=== PATIENT | female | born 1985 | race Caucasian/White ===

== ENCOUNTER 2016-08-12 10:37 | Inpatient (IN) | payer MEDICAID ==
[2016-08-12] MEDS: LR 1,000 ML IV SCH ×3 (11:15→15:25)
[2016-08-12] MEDS ORDERED: ceFAZolin 2 GM/DEXTROSE 100 ML IV ONE (11:28)
[2016-08-12] MEDS ORDERED: CITRIC ACID/SODIUM CITRATE 30 ML UDCUP PO ONE (11:28)
[2016-08-12] MEDS ORDERED: LR 500 ML IV ONE (11:28)
[2016-08-12 12:00] LABS: % IMMATURE GRANULYOCYTES 0.7 % (0.0-1.1); ABSOLUTE IMMATURE GRANULOCYTES 0.04 10^3/uL (0.00-0.10); ADD DIFF? NO; ADD MORPH? NO; ADD SCAN? NO; ATYPICAL LYMPHOCYTE FLAG 20 (0-99); FRAGMENT RBC FLAG 0 (0-99); HEMATOCRIT 39.1 % (38.0-47.0); HEMOGLOBIN 13.2 g/dL (12.6-16.3); LEFT SHIFT FLG 0 (0-99); LIPEMIA HEMOLYSIS FLAG 90 (0-99); MEAN CELL HEMOGLOBIN 31.5 pg (27.9-34.1); MEAN CELL HEMOGLOBIN CONCENTR. 33.8 g/dL (32.4-36.7); MEAN CELL VOLUME 93.3 fL (81.5-99.8); MEAN PLATELET VOLUME 11.2 fL (8.7-11.7); PLATELET CLUMPS FLAG 0 (0-99); PLATELET COUNT 143 10^3/uL (150-400); RED BLOOD CELL COUNT 4.19 10^6/uL (4.18-5.33); RED CELL DISTRIBUTION WIDTH 14.4 % (11.5-15.2)
[2016-08-12] MEDS ORDERED: fentaNYL 100 MCG/2 ML INJ ONE (13:01)
[2016-08-12] MEDS ORDERED: morphINE PF 5 MG/10 ML INJ ONE (13:01)
[2016-08-12] MEDS ORDERED: PHENYLEPHRINE 10 MG/ML SDV ONE (13:01)
[2016-08-12] MEDS ORDERED: ONDANSETRON 4 MG/2 ML VIAL ONE (13:02)
[2016-08-12] MEDS ORDERED: OXYTOCIN 100 UNITS/10 ML VIAL ONE (13:02)
[2016-08-12] MEDS ORDERED: MISOPROSTOL 200 MCG TAB ONE (13:04)
[2016-08-12] MEDS ORDERED: LACTULOSE 20 GM/30 ML UDCUP PO PRN (14:27)
[2016-08-12] MEDS ORDERED: ACETAMINOPHEN 325 MG TAB PO PRN (14:27)
[2016-08-12] MEDS ORDERED: SIMETHICONE 80 MG TAB CHEW PO PRN (14:27)
[2016-08-12] MEDS ORDERED: MAGNESIUM HYDROXIDE 30 ML UDCUP PO PRN (14:27)
[2016-08-12] MEDS ORDERED: POLYETHYLENE GLYCOL 3350 17 GM PKT PO PRN (14:27)
[2016-08-12] MEDS ORDERED: DOCUSATE SODIUM 100 MG CAP PO PRN (14:27)
[2016-08-12] MEDS ORDERED: BISACODYL 10 MG SUPP PR PRN (14:27)
--- NOTE | 2016-08-12 14:27 | OBPROC ---
- Delivery Pre-op Diagnoses: IUP 39 weeks, prior c section x 2, family status complete Post-op Diagnoses: same plus very thin lower uterine segment Procedure: Repeat, Low Transverse, Tubal Ligation Surgeon: Lorena Lopes Washroom Attendant: Adrienne Franklin Anesthesiologist: Sha Obrien Anesthesia: Spinal Specimen(s)/Path: Fallopian Tube(s) EBL: 800 - Info Infant A Delivery Date: 08/12/16 Delivery Time: 13:38 Sex of Infant: Male Score (1 Min): 8 Score (5 Min): 8
[2016-08-12] MEDS ORDERED: NALOXONE HCL 0.4 MG/ML INJ IVP PRN ×2 (14:30)
[2016-08-12] MEDS ORDERED: OXYCODONE/APAP 5/325 TAB PO PRN (14:30)
[2016-08-12] MEDS ORDERED: ONDANSETRON 4 MG/2 ML VIAL IVP PRN ×2 (14:30)
[2016-08-12] MEDS ORDERED: fentaNYL 100 MCG/2 ML INJ IVP PRN (14:30)
[2016-08-12] MEDS ORDERED: HYDROmorphONE/DILAUDID 1 MG/ML SYR IVP PRN (14:30)
[2016-08-12] MEDS ORDERED: PHENYLEPHRINE HCL 100 MCG/ML SYR IVP PRN (14:30)
[2016-08-12] MEDS ORDERED: MEPERIDINE 25 MG/ML SYR IVP PRN (14:30)
[2016-08-12] MEDS ORDERED: HYDROCODONE/APAP 5/325 TAB PO PRN (14:30)
[2016-08-12] MEDS ORDERED: MEASLES,MUMPS&RUBELLA VACC/PF 0.5 ML VIAL SC ONE (14:49)
--- NOTE | 2016-08-12 15:17 | GHP ---
[f rep st] PREOP HISTORY AND PHYSICAL DATE OF ADMISSION: 08/12/2016 PREOPERATIVE DIAGNOSES: 1. Intrauterine at 39 weeks. 2. History of previous section x2. Family status complete. The patient is a 30-year-old 3, para 2-0-0-2, at 39 weeks gestation. She has a history of a previous low transverse section x2 and is not a candidate for attempting a vaginal a fter section. Her family status is complete and desires to have a bilateral salpingectomy. Risks and benefits of the procedure have been extensively reviewed with the patient, and patient h as been properly consented. PAST MEDICAL HISTORY: Negative. MEDICATIONS: vitamins and iron. PAST SURGICAL HISTORY: section x2, wisdom tooth extraction and tooth implants. ALLERGIES: No known drug allergies. SOCIAL HISTORY: The patient is . She works as a ochoa. She denies tobacco, alcohol, or dr ug use. FAMILY HISTORY: Noncontributory. PRINTING PRESS MACHINIST HISTORY: Menarche at age 18. Period is every 28 days, lasting 1-3 days. She is a 3 , para 2-0-0-2. In 03/2011, she had a primary low transverse section at 39 weeks for a rosalind ech presentation. That delivery was complicated by a failed epidural, and she had to have general a nesthesia [facility] through the . In 11/2014, she had a repeat low transverse secti on after arrest of dilation and attempted . That was done with a spinal. Current has been uncomplicated. The patient does have a history of an abnormal Pap smear, ASCUS with HPV in 20 15. Colposcopy was negative. Re-paps have been negative. She denies any history of any other sexu ally transmitted diseases. PHYSICAL EXAM: VITAL SIGNS: Stable. GENERAL APPEARANCE: Alert and oriented x3. HEART: Her hear t rate is regular, regular. LUNGS: Clear to auscultation bilaterally. ABDOMEN: Gravid, nondisten ded, nontender. EXTREMITIES: No calf tenderness or edema. PELVIC: Exam was deferred. LABORATORY DATA: labs: Blood type A positive. Antibody screen negative. Rubella nonimmu ne. GBS negative. HBsAg negative. HIV negative. She declined a 50 g glucose and she declined gen etic testing. ASSESSMENT AND PLAN: A 30-year-old 3, para 2-0-0-2, who plans to have a repeat low transver se section with tubal ligation. Risks and benefits have been reviewed with the patient, an d patient has been properly consented. /[id number]/MODL
[2016-08-12] MEDS ORDERED: KETOROLAC 30 MG/1 ML SDV ONE (17:01)
[2016-08-12] MEDS: KETOROLAC 30 MG/1 ML SDV IVP SCH ×2 (17:04→23:09)
[2016-08-12] MEDS ORDERED: SCOPOLAMINE HYDROBROMIDE 1.5 MG PATCH TD ONE (17:47)
--- NOTE | 2016-08-12 20:24 | GOP ---
[f rep st] OPERATIVE REPORT DATE OF OPERATION: 08/12/2016 SURGEON: Lorena Lopes DO FURNITURE ASSEMBLY SUPERVISOR: Adrienne Franklin MD. ANESTHESIA: Spinal with Duramorph. ANESTHESIOLOGIST: Sha Obrien MD. PREOPERATIVE DIAGNOSIS: 1. Intrauterine at 39 weeks gestation. 2. History of previous section x2. 3. Family status complete. 4. Short interval. POSTOPERATIVE DIAGNOSIS: 1. Intrauterine at 39 weeks gestation. 2. History of previous section x2. 3. Family status complete. 4. Short interval. 5. Very thin lower uterine segment. PROCEDURE PERFORMED: Repeat low transverse section with bilateral salpingectomy. FINDINGS: 1. Viable male in the occiput posterior presentation delivered at 1338 hours. 's were 8 and 8. 2. Intact placenta with 3-vessel cord. 3. Normal uterus and tubes. 1. Very thin lower uterine segment and bladder up against lower uterine segment at time of hysterot francisco repair. 4. SPECIMENS: Bilateral fallopian tubes. ESTIMATED BLOOD LOSS: 800 cc. INDICATIONS: The patient is a 30-year-old, 3, para 2-0-0-2, who has a history of 2 previous low transverse sections and a short interval between last and this one. S he is not a candidate for attempting a vaginal after section. The patient's family s tatus is complete and would like to have a bilateral salpingectomy. The patient has been properly c onsented. DESCRIPTION OF PROCEDURE: The patient was taken to the operating room with intravenous fluids in pl sara. She was seated on the operating room table where spinal anesthesia was obtained. She was then repositioned into the dorsal supine position with a leftward tilt. A Perez catheter was then place d. Venodyne's were placed on her lower extremities and she was then prepped and draped in the abbey l sterile fashion. Anesthesia was assessed and found to be adequate. A Pfannenstiel skin incision was then made 2 fingerbreadths above the pubic symphysis. The incision was then carried through to the underlying layer of fascia with the Bovie. The fascia was then nicked in the midline and the fa scial incision was extended laterally. The superior aspect of the fascial incision was then grasped with a Belle, tented up, and the underlying rectus muscle dissected off bluntly with the Bovie. A ttention was then turned to the inferior aspect of fascial incision, which, in a similar fashion, wa s grasped with a Belle, tented up, and the underlying rectus muscle dissected off bluntly with the Bovie. The rectus muscle was then in the midline. The peritoneum was then identified, te nted up, and entered sharply with the Metzenbaum scissors. The incision was extended superiorly and inferiorly with excellent visualization of the bladder. The bladder blade was then inserted. The lower uterine segment was noted to be extremely thin and the baby was able to be visualized through the lower uterine segment. The bladder was dissected off the anterior surface of the lower uterine segment and the uterus was then incised in a low-transverse fashion high above the bladder. Clear f luid was noted. The was then delivered through the incision without difficulty. Delayed cor d clamping for 1 minute was done. Cord was clamped x2 and cut. Cord blood was obtained. The infan t was handed off to an awaiting nurse practitioner. The placenta was then delivered withou t difficulty. The intact placenta with 3-vessel cord was unremarkable and then handed off the table . The uterus was then exteriorized and cleared of all clots and debris and the bladder blade was th en reinserted. The uterus was then cleared of all clots and debris. The bladder was noted to be ve ry close still to the very thin lower uterine segment. An 0 Vicryl stitch was used to close the hys terotomy. A second 0 Vicryl stitch was used to achieve hemostasis. A 2nd imbricating layer was not performed because of the close proximity to the bladder. Ovaries and uterus and tubes were unremar kable. The right fallopian tube was then identified and followed out to the fimbriated end. The fa llopian tube was then grasped with a Carmen and gently tented up. An avascular area of the mesosal pinx was then cauterized and a defect was made. An 0 Vicryl stitch was used to achieve hemostasis a nd a right salpingectomy was performed without difficulty. A salpingectomy was performed on the con tralateral fallopian tube without difficulty. Hemostasis was assured. The uterus was then returned to the patient's abdomen and again the areas of resection were of evaluated and found to be hemosta tic. The hysterotomy remained hemostatic. The gutters were cleared of all clots and debris. The p eritoneum was reapproximated with 3-0 Vicryl in a running fashion. Rectus muscles were reapproximat ed with 2-0 Vicryl in a running fashion. Fascia was closed with 0 Vicryl in a running fashion. Sub cutaneous tissue was irrigated and found to be hemostatic and the subcuticular tissue was reapproxim ated with 3-0 Vicryl in a running fashion. The skin was then closed with cynthia. Sponge, lap, nee dle count were correct x2. Patient was transported to the recovery room in stable condition. /[id number]/MODL
[2016-08-12] MEDS: METOCLOPRAMIDE 10 MG/2 ML VIAL IVP SCH (20:59)
[2016-08-13] MEDS: SENNOSIDES/DOCUSATE SODIUM TAB PO SCH ×3 (00:10→22:50)
[2016-08-13] MEDS: METOCLOPRAMIDE 10 MG/2 ML VIAL IVP SCH ×5 (02:27→22:06)
[2016-08-13] MEDS: KETOROLAC 30 MG/1 ML SDV IVP SCH ×2 (05:00→20:21)
[2016-08-13] MEDS ORDERED: MEASLES,MUMPS&RUBELLA VACC/PF 0.5 ML VIAL SC ONE (12:00)
[2016-08-13] MEDS: HYDROCODONE/APAP 5/325 TAB PO PRN ×2 (12:38→19:38)
--- NOTE | 2016-08-13 14:38 | OBPROG ---
OBG Progress Note Assessment/Plan: Assessment: 30 y/o POD #1 s/p Rpt LTCS and B salpingectomy Plan: Ambulate with assistance. support. Likely d/c home tomorrow. 08/13/16 14:37 Subjective: Pt is doing well this am. She has good pain control with po meds now and is tolerating reg diet. She is ambulating well and took a shower today. Breast feeding is going well and baby is doing well. She would like to d/c home tomorrow. Objective: 08/13/16 05:15 Patient ABO/Rh A POSITIVE 08/12/16 11:30 Temp Pulse Resp BP Pulse Ox 36.3 C 75 16 96/59 L 96 08/13/16 09:00 08/13/16 09:00 08/13/16 09:00 08/13/16 09:00 08/13/16 09:00 Uterine Position/Fundal Height: Umbilicus -2 Uterine Tone: Firm - Physical Exam General Appearance: WD/WN, alert, no apparent distress Neck: non-tender, full range of motion, supple Respiratory: chest non-tender, lungs clear, normal breath sounds Cardiac/Chest: regular rate, rhythm Abdomen: normal bowel sounds, incision (c/d/i) Extremities: swelling (no), Azalea's sign (neg) ICD10 Worksheet Patient Problems: Problems Problem Status Onset Active labor Acute History of delivery Acute
[2016-08-13] MEDS: IBUPROFEN 600 MG TAB PO PRN (17:44)
[2016-08-13] MEDS ORDERED: PATCH REMOVAL 1 EA PATCH TD ONE (17:47)
[2016-08-13] MEDS ORDERED: IBUPROFEN 600 MG TAB PO PRN (18:00)
[2016-08-14] MEDS: HYDROCODONE/APAP 5/325 TAB PO PRN (02:07)
[2016-08-14] MEDS: IBUPROFEN 600 MG TAB PO PRN ×2 (02:07→08:38)
[2016-08-14] MEDS: METOCLOPRAMIDE 10 MG/2 ML VIAL IVP SCH ×2 (05:42→07:16)
[2016-08-14 08:40] VITALS: BP 101/65; PULSE 86; RESP 17; TEMP 97.3; O2SAT 92
--- NOTE | 2016-08-14 09:39 | OBPROG ---
OBG Progress Note Assessment/Plan: Assessment: 30 y/o POD #2 s/p Rpt LTCS and B salpingectomy Plan: D/c staple and d/c home today. Rx [place] and Ibuprofen and follow-up @ [facility] 2 and 6 weeks. 08/13/16 14:37 08/14/16 09:38 Subjective: Pt is ding well this am. She is ambulating and voiding without difficulty. She has good pain control with po meds and has min lochia. Baby is doing well nursing and her milk had come in. They are ready to d.c home. Objective: 08/13/16 05:15 Patient ABO/Rh A POSITIVE 08/12/16 11:30 Temp Pulse Resp BP Pulse Ox 36.3 C 86 17 101/65 92 08/14/16 08:25 08/14/16 08:25 08/14/16 08:25 08/14/16 08:25 08/14/16 08:25 Uterine Position/Fundal Height: Umbilicus -2 Uterine Tone: Firm - Physical Exam General Appearance: WD/WN, alert, no apparent distress Neck: non-tender, full range of motion, supple Respiratory: chest non-tender, lungs clear, normal breath sounds Cardiac/Chest: regular rate, rhythm Abdomen: normal bowel sounds, incision (c/d/i) Extremities: swelling (no), Azalea's sign (neg) ICD10 Worksheet Patient Problems: Problems Problem Status Onset delivery delivered Acute Active labor Acute History of delivery Acute
== END 2016-08-14 11:30 | disposition home or self-care (01) | DRG 766 ==
LOC: FLD 10:37 → FOB 17:33
PROVIDERS: ADMIT Obstetrics & Gynecology; ATTEND Obstetrics & Gynecology
PROC: 0UB70ZZ Excision of Bilateral Fallopian Tubes, Open Approach (ICD-10-PCS; principal; 2016-08-12)
PROC: 10D00Z1 Extraction of Products of Conception, Low, Open Approach (ICD-10-PCS; principal; 2016-08-12)
DX: O34.211 Maternal care for low transverse scar from previous cesarean delivery (principal); Z3A.39 39 weeks gestation of pregnancy; Z37.0 Single live birth
CPT/HCPCS: J0690; J1885; J2274; J2370; J2405; J2590; J2765; J3010